=== PATIENT | female | born 1940 | race Caucasian/White ===

== ENCOUNTER 2016-10-27 05:21 | Day surgery (SDC) | payer MEDICARE, BC ==
[2016-10-27] MEDS ORDERED: Dextrose 5%-0.45% NaCl 1,000 ML IV SCH (06:00)
[2016-10-27] MEDS: Sodium Chloride 0.9% 10 ML Syringe FLUSH PRN ×2 (06:15→08:42)
[2016-10-27] MEDS ORDERED: Midazolam 1 MG/ML 2 ML SDV ONE ×2 (06:18→06:19)
[2016-10-27] MEDS ORDERED: fentaNYL 100 MCG/2 ML SDV ONE (06:18)
[2016-10-27] MEDS ORDERED: fentaNYL 100 MCG/2 ML SDV IV ONE ×3 (06:31→12:02)
[2016-10-27] MEDS ORDERED: Midazolam 1 MG/ML 2 ML SDV IV ONE ×5 (06:34→12:02)
--- NOTE | 2016-10-27 08:14 | OR ---
DATE: 10/27/2016 PROCEDURES: Total colonoscopy, NBI, cold snare polypectomy, and multiple pinch biopsies. INSTRUMENT USED: PCF-H180AL Olympus video colonoscope. PREMEDICATIONS: Fentanyl 100 mcg intravenous, Versed 2 mg intravenous. Nasal O2 cannula. The procedure was done under pulse oximetry, BP recording, and youth nutritional monitor. INDICATION: The patient with previous right hemicolectomy for adenocarcinoma. Recent PET scan suggestive of prominent folds at surgical site, malignancy under consideration. Colonoscopic examination is done for detection of any polypoid lesions and removal, rule out any recurrence of malignancy, endoscopic hemostasis therapy if needed. DESCRIPTION OF PROCEDURE: Initial rectal exam was unremarkable. Rigid anoscopy was normal. The colonoscope was passed with ease. Numerous scattered diverticula were noted in the distal left colon along with deformity. The scope was passed with ease up to the area of the surgical anastomosis, photographs were taken, some prominent benign-appearing folds were noted, NBI views were obtained, multiple pinch biopsies were obtained and sent for histopathology. There was some amount of fecal material, solid and liquid that needed aspiration. No bleeding was noted from any of the visualized areas at the commencement of the examination. No stricture. No vascular ectasia. No large isolated ulcerations seen. No evidence of diffuse inflammatory bowel disease in the form of friability, contact bleeding, or ulcerations. Photographs were taken of the area of the surgical site. Probing the proximal sides of folds and flexures, using adequate distention and clearing of the stool material, withdrawal of the scope was made. In the distal descending colon, around 8 mm sized benign-appearing pedunculated polyp was noted, NBI views were obtained, photographs were taken, cold snare polypectomy was done, the tissue was retrieved and sent for histopathology. No bleeding was noted from any of the visualized areas at the completion of examination. IMPRESSION: 1. Diverticulosis. 2. Descending colon polyp. The patient tolerated the procedure well. [facility] /[id number]
[2016-10-27 08:39] VITALS: BP 140/59
--- NOTE | 2016-10-27 09:38 | LETTER ---
10/27/2016 Sherry Kelley MD [facility] [address] [facility] [place] [address] RE: KARL HSIEH : [address] Kelley: Ms. Karl Hsieh had colonoscopic examination done this morning and she tolerated the procedure well. I herewith send a copy of the endoscopy note and photographs for your review. Thank you. Sincerely, [facility] /[id number]
== END 2016-10-27 09:00 | disposition home or self-care (01) ==
LOC: DL.ENDO 05:21
PROVIDERS: ATTEND Internal Medicine Gastroenterology
DX: D12.4 Benign neoplasm of descending colon (principal); K57.30 Diverticulosis of large intestine without perforation or abscess without bleeding; I48.91 Unspecified atrial fibrillation; E78.00 Pure hypercholesterolemia, unspecified; J44.9 Chronic obstructive pulmonary disease, unspecified; Z90.49 Acquired absence of other specified parts of digestive tract; Z85.038 Personal history of other malignant neoplasm of large intestine; Z87.891 Personal history of nicotine dependence; Z98.890 Other specified postprocedural states; Z79.01 Long term (current) use of anticoagulants; Z79.899 Other long term (current) drug therapy
CPT/HCPCS: 45380; 45385; J1642; J2250; J7042; J7050; 88305; J3010

== ENCOUNTER 2017-02-14 19:19 | Emergency (ER) | payer MEDICARE, BC ==
[2017-02-14 19:46] VITALS: BP 138/71
[2017-02-14] MEDS ORDERED: fentaNYL 100 MCG/2 ML SDV IVPUSH ONE ×2 (21:42→23:13)
[2017-02-14 21:44] LABS: CHLORIDE,CL 100 mmol/L (101-111); SODIUM,NA 136 mmol/L (135-145)
[2017-02-14] MEDS ORDERED: Iopamidol 612 MG/ML 75 ML Bottle IVPUSH ONE (21:59)
[2017-02-14] MEDS ORDERED: Polyethylene Glycol 3350 Powder 17 GM Packet ONE (23:31)
--- NOTE | 2017-02-14 23:32 | EDM.PDOC ---
ED HPI GENERAL MEDICAL PROBLEM - General Chief Complaint: Abdominal Pain Stated Complaint: STOMACH AND BACK PAINS, [id number] Time Seen by Provider: 02/14/17 20:03 Source of Information: Reports: Patient History Limitations: Reports: No Limitations - History of Present Illness INITIAL COMMENTS - FREE TEXT/NARRATIVE: C/o constipation for past 2 days with RLQ pain and discomfort to low back . hx colon resection in may with 13 chemo treatment. Last approximately 3 weeks ago. Notes area in Right abdomen a "hotspot and treatments stopped. Is being referred to [facility] later this month. Was seen in clinic last week for similar discomfort and told to take milk of magnesia with constipation. Took dose this am and no results. no nausea at present. appetite has been good. Occasional use of oxycodone at bedtime for discomfort. But only helps for approximately 45 minutes. Abdomen Pain Score (Numeric/FACES): 6 - Related Data Allergies Allergy/AdvReac Type Severity Reaction Status Date / Time hydrocodone Allergy Itching Verified 02/14/17 19:50 Home Meds: Home Meds atorvaSTATin [Lipitor] 10 mg PO BEDTIME 10/29/14 [History] Ibuprofen 200 mg PO ASDIRECTED PRN 05/19/16 [History] Lidocaine/Prilocaine [EMLA Crm] 1 applic TOP ASDIRECTED PRN 10/25/16 [History] Metoprolol Tartrate [Lopressor] 1 tab PO ASDIRECTED 10/25/16 [History] Ondansetron HCl [Ondansetron] 1 tab PO Q8H PRN 10/25/16 [History] Pantoprazole Sodium [Protonix] 1 tab PO DAILY 10/25/16 [History] Prochlorperazine [Compazine] 1 tab PO Q6H PRN 10/25/16 [History] Warfarin [Coumadin] 1 tab PO ASDIRECTED 10/25/16 [History] oxyCODONE 1 tab PO Q6H PRN 02/14/17 [History] Past Medical History HEENT History: Reports: Impaired Vision, Other (See Below) Other HEENT History: UPPER AND LOWER DENTURE PLATE Cardiovascular History: Reports: Afib, Blood Clots/VTE/DVT, High Cholesterol Respiratory History: Reports: COPD Gastrointestinal History: Reports: Colon Polyp, GERD, Other (See Below) Other Gastrointestinal History: S/P ABDOMINAL ABSCESS Genitourinary History: Reports: 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 LEUKOCYTOSIS. THROMBOCYTOSIS. HX OF HYPONATREMIA Immunologic History: Reports: None Oncologic (Cancer) History: Reports: Colon Dermatologic History: Reports: None - Infectious Disease History Infectious Disease History: Reports: Chicken Pox, Measles, Mumps, Pertussis ( Whooping Cough), Rubella, Other (See Below) Other Infectious Disease History: RICKETS - Past Surgical History Head Surgeries/Procedures: Reports: None HEENT Surgical History: Reports: Oral Surgery, Tonsillectomy Cardiovascular Surgical History: Reports: None Respiratory Surgical History: Reports: None GI Surgical History: Reports: Colonoscopy, Other (See Below) Other GI Surgeries/Procedures: RIGHT HEMICOLECTOMY FOR ADENOCARCINOMA Female Surgical History: Reports: Breast Biopsy Endocrine Surgical History: Reports: None Other Musculoskeletal Surgeries/Procedures:: had back surgery 4 to 5 years ago Oncologic Surgical History: Reports: Other (See Below) Other Oncologic Surgeries/Procedures: RIGHT HEMICOLECTOMY Dermatological Surgical History: Reports: None Social & Family History - Family History HEENT: Reports: None Cardiac: Reports: Cardiomyopathy Respiratory: Reports: None GI: Reports: None : Reports: None OBGYN: Reports: None Neurological: Reports: MS Psychiatric: Reports: None Endocrine/Metabolic: Reports: None Hematologic: Reports: None Immunologic: Reports: None Dermatologic: Reports: None Oncologic: Reports: Breast - Tobacco Use Smoking Status *Q: Former Smoker Years of Tobacco use: 40 Packs/Tins Daily: 0.5 Used Tobacco, but Quit: No Second Hand Smoke Exposure: Yes - Caffeine Use Caffeine Use: Reports: Coffee Other Caffeine Use: COFFEE, AVERAGE OF 5 CUPS DAILY - Recreational Drug Use Recreational Drug Use: No Drug Use in Last 12 Months: No ED ROS GENERAL - Review of Systems Review Of Systems: See Below Constitutional: Reports: Fatigue HEENT: Reports: No Symptoms Respiratory: Reports: No Symptoms Cardiovascular: Reports: No Symptoms GI/Abdominal: Reports: Abdominal Pain, Constipation : Reports: No Symptoms Skin: Reports: No Symptoms Neurological: Reports: No Symptoms ED EXAM, GI/ABD - Physical Exam Exam: See Below Exam Limited By: No Limitations General Appearance: Alert, Mild Distress Eyes: Bilateral: EOMI Ears: Normal External Exam Nose: Normal Inspection Throat/Mouth: Normal Inspection Head: Atraumatic, Normocephalic Neck: Normal Inspection, Full Range of Motion Respiratory/Chest: No Respiratory Distress, Lungs Clear, Normal Breath Sounds Cardiovascular: Normal Peripheral Pulses, Regular Rate, Rhythm GI/Abdominal Exam: Tender (RLQ), Abnormal Bowel Sounds (hyperactive). No: Distended, Guarding Back Exam: Other (sacral tenderness with deeppalpation ) Extremities: Normal Inspection Neurological: Alert, Oriented, Normal Cognition, Normal Gait Psychiatric: Normal Affect, Normal Mood Skin Exam: Warm, Dry, Intact, Normal Color Course - Vital Signs Last Recorded V/S: Last Vital Signs Temp 97.8 F 02/14/17 19:43 Pulse 62 02/14/17 19:43 Resp 20 02/14/17 19:43 BP 138/71 02/14/17 19:43 Pulse Ox 98 02/14/17 19:43 - Orders/Labs/Meds Labs: Laboratory Tests 02/14/17 02/14/17 02/14/17 Range/Units 21:16 21:16 21:16 WBC 4.6 L (5.0-10.0) 10^3/uL RBC 3.92 L (4.2-5.4) 10^6/uL Hgb 12.1 (12.0-16.0) g/dL Hct 38.4 (37.0-47.0) % MCV 98.0 (80-100) fL MCH 30.9 (27.0-34.0) pg MCHC 31.5 L (33.0-35.0) g/dL Plt Count 177 (150-450) 10^3/uL Neut % (Auto) 37.3 L (42.2-75.2) % Lymph % (Auto) 38.2 (20.5-50.1) % [place] % (Auto) 22.5 H (2-8) % Eos % (Auto) 1.3 (1.0-3.0) % Baso % (Auto) 0.7 (0.0-1.0) % Add Manual Diff Yes Neutrophils % (Manual) 43 (42-75) % Band Neutrophils % 1 % Lymphocytes % (Manual) 33 (20-50) % Monocytes % (Manual) 21 H (2-8) % Basophils % (Manual) 1 Myelocytes % 1 Toxic Granulation 1+ slight Platelet Estimate Adequate Giant Platelets Few Target Cells Few PT 26.3 H (9.0-12.0) SEC INR 2.6 H (0.9-1.2) Sodium 136 (135-145) mmol/L Potassium 3.9 (3.6-5.0) mmol/L Chloride 100 L (101-111) mmol/L Carbon Dioxide 25.0 (21.0-31.0) mmol/L Anion Gap 14.9 BUN 9 (7-18) mg/dL Creatinine 0.8 (0.6-1.3) mg/dL Est Cr Clr Drug Dosing 45.12 mL/min Estimated GFR (MDRD) > 60 BUN/Creatinine Ratio 11.25 Glucose 101 (74-105) mg/dL Calcium 9.5 (8.4-10.2) mg/dl Total Bilirubin 0.6 (0.2-1.0) mg/dL AST 27 (10-42) IU/L ALT 21 (10-60) IU/L Alkaline Phosphatase 63 (42-121) IU/L Total Protein 6.6 L (6.7-8.2) g/dl Albumin 4.1 (3.2-5.5) g/dl Globulin 2.5 Albumin/Globulin Ratio 1.64 Amylase 89 (28-100) U/L Lipase 28 (22-51) U/L Meds: Medications Discontinued Medications Generic Name Dose Route Start Last Admin Trade Name Patrice PRN Reason Stop Dose Admin Fentanyl 25 mcg 02/14/17 21:42 02/14/17 21:57 Sublimaze IVPUSH 02/14/17 21:43 25 mcg ONETIME ONE Administration Fentanyl 25 mcg 02/14/17 23:13 02/14/17 23:17 Sublimaze IVPUSH 02/14/17 23:14 25 mcg ONETIME ONE Administration Iopamidol 75 ml 02/14/17 21:59 02/14/17 22:31 Isovue-300 (61%) IVPUSH 02/14/17 22:00 75 ml ONETIME ONE Administration Polyethylene Glycol Confirm 02/14/17 23:31 02/14/17 23:39 Miralax Administered 02/14/17 23:32 17 gm Dose Administration 17 gm .ROUTE .[employer] ONE - Radiology Interpretation Free Text/Narrative:: CT abdomen with contrast. Lobulated, heterogeneous mass in RLQ adjacent to the cecum, worrisome for tumor recurrence near the postoperative site., Retroperitoneal mass seen in the flank posterior to the left kidney and second tiny enhancing nodularity seen within the left posterior paraspinous musculature worrisome for metastatic lesions. - Re-Assessments/Exams Free Text/Narrative Re-Assessment/Exam: CT results briefly reviewed with patient and family, recommendation to utilize Miralax on regular basis, Routine use of pain medication. Follow up with PCP this week and determine if possible to move up appointment in [place] or adjust pain medications based on CT findinsgs. Departure - Departure Time of Disposition: 23:28 Disposition: Home, Self-Care 01 Condition: Fair Clinical Impression: History of colon cancer Abdominal pain Qualifiers: Abdominal location: right lower quadrant Qualified Code(s): R10.31 - Right lower quadrant pain - Discharge Information Instructions: Constipation, Adult, [id number], Pain Medicine Instructions, [id number] Forms: ED Department Discharge Additional Instructions: milalax 17gm ( one capful daily) in 8 ounces of liquid Oxycodone 5mg 1-2 every 4 hours as needed for pain Follow up with PCP this week Urgent follow up if increasing pain , vomiting or fever light diet 24 hours
== END 2017-02-14 23:43 | disposition home or self-care (01) ==
LOC: DL.ED 19:19
DX: R10.31 Right lower quadrant pain (principal); E78.00 Pure hypercholesterolemia, unspecified; J44.9 Chronic obstructive pulmonary disease, unspecified; K21.9 Gastro-esophageal reflux disease without esophagitis; Z86.2 Personal history of diseases of the blood and blood-forming organs and certain disorders involving the immune mechanism; Z85.038 Personal history of other malignant neoplasm of large intestine; Z98.890 Other specified postprocedural states; Z87.891 Personal history of nicotine dependence; Z79.01 Long term (current) use of anticoagulants; Z79.899 Other long term (current) drug therapy; Z88.5 Allergy status to narcotic agent
CPT/HCPCS: 36415; 74177; 80053; 82150; 83690; 85025; 85610; 96374; 96376; 99284; A9270; J3010; Q9967

== ENCOUNTER 2017-02-17 13:40 | Emergency (ER) | payer MEDICARE, BC ==
[2017-02-17] MEDS ORDERED: Sodium Chloride 0.9% 1,000 ML IV SCH (14:15)
--- NOTE | 2017-02-17 14:21 | EDM.PDOC ---
ED HPI GENERAL MEDICAL PROBLEM - General Chief Complaint: Neuro Symptoms/Deficits Stated Complaint: DIZZY AND FALLING DOWN, [id number] Time Seen by Provider: 02/17/17 14:13 Source of Information: Reports: Patient, Family History Limitations: Reports: No Limitations - History of Present Illness INITIAL COMMENTS - FREE TEXT/NARRATIVE: 76 yo white female w/ PMHx. Colon Cancer and s/p 13 rounds of chemo. Also newly low abdomen mass noted and will have evaluation at [facility]. Pt. admits to poor appetite and poor fluid intake. Today patient became very weak on standing and dropped to her knees w/o LOC and no head injury Onset: Today Onset Date: 02/17/17 Onset Time: 09:00 Duration: Hour(s): Location: Reports: Generalized Severity: Moderate Improves with: Reports: None Worsens with: Reports: None Context: Reports: Other (PMHx. Colon Cancer and s/p 18 rounds of chemo w/ poor oral intake) Associated Symptoms: Reports: Malaise, Weakness - Related Data Allergies Allergy/AdvReac Type Severity Reaction Status Date / Time acetaminophen [From Tylenol] Allergy Stomach Verified 02/17/17 14:05 Upset hydrocodone Allergy Itching Verified 02/14/17 19:50 Home Meds: Home Meds atorvaSTATin [Lipitor] 10 mg PO BEDTIME 10/29/14 [History] Ibuprofen 200 mg PO ASDIRECTED PRN 05/19/16 [History] Lidocaine/Prilocaine [EMLA Crm] 1 applic TOP ASDIRECTED PRN 10/25/16 [History] Metoprolol Tartrate [Lopressor] 1 tab PO BID 10/25/16 [History] Ondansetron HCl [Ondansetron] 1 tab PO Q8H PRN 10/25/16 [History] Pantoprazole Sodium [Protonix] 1 tab PO DAILY 10/25/16 [History] Prochlorperazine [Compazine] 1 tab PO Q6H PRN 10/25/16 [History] Warfarin [Coumadin] 0.5 tab PO ASDIRECTED 10/25/16 [History] oxyCODONE 1 tab PO Q6H PRN 02/14/17 [History] Past Medical History HEENT History: Reports: Impaired Vision, Other (See Below) Other HEENT History: UPPER AND LOWER DENTURE PLATE Cardiovascular History: Reports: Afib, Blood Clots/VTE/DVT, High Cholesterol Respiratory History: Reports: COPD Gastrointestinal History: Reports: Colon Polyp, GERD, Other (See Below) Other Gastrointestinal History: S/P ABDOMINAL ABSCESS 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 LEUKOCYTOSIS. THROMBOCYTOSIS. HX OF HYPONATREMIA Immunologic History: Reports: None Oncologic (Cancer) History: Reports: Colon Dermatologic History: Reports: None - Infectious Disease History Infectious Disease History: Reports: Chicken Pox, Measles, Mumps, Pertussis ( Whooping Cough), Rubella, Other (See Below) Other Infectious Disease History: RICKETS - Past Surgical History Head Surgeries/Procedures: Reports: None HEENT Surgical History: Reports: Oral Surgery, Tonsillectomy Cardiovascular Surgical History: Reports: None Respiratory Surgical History: Reports: None GI Surgical History: Reports: Colonoscopy, Other (See Below) Other GI Surgeries/Procedures: RIGHT HEMICOLECTOMY FOR ADENOCARCINOMA Female Surgical History: Reports: Breast Biopsy Endocrine Surgical History: Reports: None Other Musculoskeletal Surgeries/Procedures:: had back surgery 4 to 5 years ago Oncologic Surgical History: Reports: Other (See Below) Other Oncologic Surgeries/Procedures: RIGHT HEMICOLECTOMY Dermatological Surgical History: Reports: None Social & Family History - Family History HEENT: Reports: None Cardiac: Reports: Cardiomyopathy Respiratory: Reports: None GI: Reports: None : Reports: None OBGYN: Reports: None Neurological: Reports: MS Psychiatric: Reports: None Endocrine/Metabolic: Reports: None Hematologic: Reports: None Immunologic: Reports: None Dermatologic: Reports: None Oncologic: Reports: Breast - Tobacco Use Smoking Status *Q: Former Smoker Years of Tobacco use: 40 Packs/Tins Daily: 0.5 Used Tobacco, but Quit: No Second Hand Smoke Exposure: Yes - Caffeine Use Caffeine Use: Reports: Coffee Other Caffeine Use: COFFEE, AVERAGE OF 5 CUPS DAILY - Recreational Drug Use Recreational Drug Use: No Drug Use in Last 12 Months: No ED ROS GENERAL - Review of Systems Review Of Systems: See Below Constitutional: Reports: Malaise, Weakness, Fatigue, Decreased Appetite, Weight Loss HEENT: Reports: No Symptoms Respiratory: Reports: No Symptoms Cardiovascular: Reports: No Symptoms Endocrine: Reports: No Symptoms GI/Abdominal: Reports: Constipation (due to intake of Oxycontin), Decreased Appetite : Reports: No Symptoms Musculoskeletal: Reports: No Symptoms Skin: Reports: No Symptoms Neurological: Reports: No Symptoms Psychiatric: Reports: No Symptoms Hematologic/Lymphatic: Reports: No Symptoms Immunologic: Reports: No Symptoms ED EXAM, GENERAL - Physical Exam Exam: See Below Exam Limited By: No Limitations General Appearance: Alert, No Apparent Distress, Cachetic Eye Exam: Bilateral Eye: EOMI, PERRL Ears: Normal External Exam Nose: Normal Inspection Throat/Mouth: Normal Inspection Head: Atraumatic Neck: Normal Inspection Respiratory/Chest: No Respiratory Distress, Lungs Clear Cardiovascular: Normal Peripheral Pulses, Regular Rate, Rhythm GI/Abdominal: Soft, Mass (right low abdomen) Back Exam: Normal Inspection Extremities: Normal Inspection, Normal Range of Motion Neurological: Alert, Oriented, CN II-XII Intact Psychiatric: Normal Affect, Normal Mood Skin Exam: Warm, Dry, Intact Lymphatic: No Adenopathy Course - Vital Signs Last Recorded V/S: Last Vital Signs Temp 37.1 C 02/17/17 13:55 Pulse 94 02/17/17 13:55 Resp 16 02/17/17 13:55 BP 120/67 02/17/17 13:55 Pulse Ox 99 02/17/17 13:55 - Orders/Labs/Meds Orders: Active Orders 24 hr Category Date Time Status Sodium Chloride 0.9% [Normal Saline] 1,000 ml Med 02/17/17 14:15 Active IV ASDIRECTED Medication Orders Sodium Chloride (Normal Saline) 1,000 mls @ 125 mls/hr IV ASDIRECTED MEI Last Admin: 02/17/17 14:35 Dose: 125 mls/hr Labs: Laboratory Tests 02/17/17 02/17/17 02/17/17 Range/Units 14:31 14:31 14:31 WBC 5.5 (5.0-10.0) 10^3/uL RBC 4.17 L (4.2-5.4) 10^6/uL Hgb 12.8 (12.0-16.0) g/dL Hct 40.4 (37.0-47.0) % MCV 96.9 (80-100) fL MCH 30.7 (27.0-34.0) pg MCHC 31.7 L (33.0-35.0) g/dL Plt Count 208 (150-450) 10^3/uL Neut % (Auto) 41.6 L (42.2-75.2) % Lymph % (Auto) 33.8 (20.5-50.1) % [place] % (Auto) 23.0 H (2-8) % Eos % (Auto) 0.7 L (1.0-3.0) % Baso % (Auto) 0.9 (0.0-1.0) % PT 46.6 H D (9.0-12.0) SEC INR 4.6 H (0.9-1.2) APTT 73.2 H (22.0-34.0) SEC Sodium 136 (135-145) mmol/L Potassium 3.5 L (3.6-5.0) mmol/L Chloride 101 (101-111) mmol/L Carbon Dioxide 26.0 (21.0-31.0) mmol/L Anion Gap 12.5 BUN 10 (7-18) mg/dL Creatinine 0.9 (0.6-1.3) mg/dL Est Cr Clr Drug Dosing TNP Estimated GFR (MDRD) > 60 BUN/Creatinine Ratio 11.11 Glucose 124 H (74-105) mg/dL Calcium 9.1 (8.4-10.2) mg/dl Total Bilirubin 0.6 (0.2-1.0) mg/dL AST 26 (10-42) IU/L ALT 18 (10-60) IU/L Alkaline Phosphatase 58 (42-121) IU/L Total Protein 6.0 L (6.7-8.2) g/dl Albumin 3.6 (3.2-5.5) g/dl Globulin 2.4 Albumin/Globulin Ratio 1.50 Amylase 73 (28-100) U/L Lipase 28 (22-51) U/L Urine Color (YELLOW) Urine Appearance (CLEAR) Urine pH (5.0-9.0) Ur Specific [place] (1.005-1.030) Urine Protein (NEGATIVE) Urine Glucose (UA) (NEGATIVE) Urine Ketones (NEGATIVE) Urine Occult Blood (NEGATIVE) Urine Nitrite (NEGATIVE) Urine Bilirubin (NEGATIVE) Urine Urobilinogen (0.2-1.0) mg/dL Ur Leukocyte Esterase (NEGATIVE) 02/17/17 Range/Units 14:45 WBC (5.0-10.0) 10^3/uL RBC (4.2-5.4) 10^6/uL Hgb (12.0-16.0) g/dL Hct (37.0-47.0) % MCV (80-100) fL MCH (27.0-34.0) pg MCHC (33.0-35.0) g/dL Plt Count (150-450) 10^3/uL Neut % (Auto) (42.2-75.2) % Lymph % (Auto) (20.5-50.1) % [place] % (Auto) (2-8) % Eos % (Auto) (1.0-3.0) % Baso % (Auto) (0.0-1.0) % PT (9.0-12.0) SEC INR (0.9-1.2) APTT (22.0-34.0) SEC Sodium (135-145) mmol/L Potassium (3.6-5.0) mmol/L Chloride (101-111) mmol/L Carbon Dioxide (21.0-31.0) mmol/L Anion Gap BUN (7-18) mg/dL Creatinine (0.6-1.3) mg/dL Est Cr Clr Drug Dosing Estimated GFR (MDRD) BUN/Creatinine Ratio Glucose (74-105) mg/dL Calcium (8.4-10.2) mg/dl Total Bilirubin (0.2-1.0) mg/dL AST (10-42) IU/L ALT (10-60) IU/L Alkaline Phosphatase (42-121) IU/L Total Protein (6.7-8.2) g/dl Albumin (3.2-5.5) g/dl Globulin Albumin/Globulin Ratio Amylase (28-100) U/L Lipase (22-51) U/L Urine Color Yellow (YELLOW) Urine Appearance Clear (CLEAR) Urine pH 7.0 (5.0-9.0) Ur Specific [place] 1.015 (1.005-1.030) Urine Protein Trace H (NEGATIVE) Urine Glucose (UA) Negative (NEGATIVE) Urine Ketones Negative (NEGATIVE) Urine Occult Blood Trace-intact H (NEGATIVE) Urine Nitrite Negative (NEGATIVE) Urine Bilirubin Negative (NEGATIVE) Urine Urobilinogen 0.2 (0.2-1.0) mg/dL Ur Leukocyte Esterase Negative (NEGATIVE) Meds: Medications Generic Name Dose Route Start Last Admin Trade Name Patrice PRN Reason Stop Dose Admin Sodium Chloride 1,000 mls @ 125 mls/hr 02/17/17 14:15 02/17/17 14:35 Normal Saline IV 125 mls/hr ASDIRECTED MEI Administration Departure - Departure Time of Disposition: 16:03 Disposition: Home, Self-Care 01 Condition: Fair Clinical Impression: Weakness generalized, Coagulopathy - Discharge Information Forms: ED Department Discharge Additional Instructions: Your case was discussed with Madalyn Johnson Please increase intake of Fluids ( Water and Juice) Try Nutritional Supplements ( BOOST or ENSURE PLUS) take 3 cans each day Madalyn Johnson request you get a repeat blood draw on Tuesday morning F/U w/ [facility] - My Orders Last 24 Hours: My Active Orders 02/17/17 14:15 Sodium Chloride 0.9% [Normal Saline] 1,000 ml IV ASDIRECTED - Assessment/Plan Last 24 Hours: My Active Orders 02/17/17 14:15 Sodium Chloride 0.9% [Normal Saline] 1,000 ml IV ASDIRECTED
[2017-02-17 14:58] LABS: CHLORIDE,CL 101 mmol/L (101-111); SODIUM,NA 136 mmol/L (135-145)
[2017-02-17 16:23] VITALS: BP 108/67
== END 2017-02-17 16:38 | disposition home or self-care (01) ==
LOC: DL.ED 13:40
DX: R53.1 Weakness (principal); D68.9 Coagulation defect, unspecified; J44.9 Chronic obstructive pulmonary disease, unspecified; C18.9 Malignant neoplasm of colon, unspecified; Z88.6 Allergy status to analgesic agent; Z88.5 Allergy status to narcotic agent; Z79.899 Other long term (current) drug therapy; Z79.01 Long term (current) use of anticoagulants; Z87.891 Personal history of nicotine dependence
CPT/HCPCS: 36415; 80053; 81003; 82150; 83690; 85025; 85610; 85730; 96361; 96374; 99285; J1642; J7030; 99284

== ENCOUNTER 2017-03-01 13:03 | Emergency (ER) | payer MEDICARE, BC ==
[2017-03-01 13:23] VITALS: BP 154/61
--- NOTE | 2017-03-01 14:30 | EDM.PDOC ---
ED HPI GENERAL MEDICAL PROBLEM - General Chief Complaint: General Stated Complaint: WEAK Time Seen by Provider: 03/01/17 14:26 Source of Information: Reports: Patient, RN, RN Notes Reviewed History Limitations: Reports: No Limitations - History of Present Illness INITIAL COMMENTS - FREE TEXT/NARRATIVE: Pt presents to the ER with c/o feeling weak. She states she is on chemo and had her last treatment about 1 month ago. She states she has been feeling run down and weak the past few days. Pt denies cough, sore throat, chest pain, sob, fever , chills, N/V/D. Patient denies pain at this time. Onset: Gradual - Related Data Allergies Allergy/AdvReac Type Severity Reaction Status Date / Time acetaminophen [From Tylenol] Allergy Stomach Verified 02/17/17 14:05 Upset hydrocodone Allergy Itching Verified 02/14/17 19:50 Home Meds: Home Meds atorvaSTATin [Lipitor] 10 mg PO BEDTIME 10/29/14 [History] Ibuprofen 200 mg PO ASDIRECTED PRN 05/19/16 [History] Lidocaine/Prilocaine [EMLA Crm] 1 applic TOP ASDIRECTED PRN 10/25/16 [History] Metoprolol Tartrate [Lopressor] 1 tab PO BID 10/25/16 [History] Ondansetron HCl [Ondansetron] 1 tab PO Q8H PRN 10/25/16 [History] Pantoprazole Sodium [Protonix] 1 tab PO DAILY 10/25/16 [History] Prochlorperazine [Compazine] 1 tab PO Q6H PRN 10/25/16 [History] Warfarin [Coumadin] 0.5 tab PO ASDIRECTED 10/25/16 [History] oxyCODONE 1 tab PO Q6H PRN 02/14/17 [History] Past Medical History HEENT History: Reports: Impaired Vision, Other (See Below) Other HEENT History: UPPER AND LOWER DENTURE PLATE Cardiovascular History: Reports: Afib, Blood Clots/VTE/DVT, High Cholesterol Respiratory History: Reports: COPD Gastrointestinal History: Reports: Colon Polyp, GERD, Other (See Below) Other Gastrointestinal History: S/P ABDOMINAL ABSCESS Genitourinary History: Reports: None 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 LEUKOCYTOSIS. THROMBOCYTOSIS. HX OF HYPONATREMIA Immunologic History: Reports: None Oncologic (Cancer) History: Reports: Colon Dermatologic History: Reports: None - Infectious Disease History Infectious Disease History: Reports: Chicken Pox, Measles, Mumps, Pertussis ( Whooping Cough), Rubella, Other (See Below) Other Infectious Disease History: RICKETS - Past Surgical History Head Surgeries/Procedures: Reports: None HEENT Surgical History: Reports: Oral Surgery, Tonsillectomy Cardiovascular Surgical History: Reports: None Respiratory Surgical History: Reports: None GI Surgical History: Reports: Colonoscopy, Other (See Below) Other GI Surgeries/Procedures: RIGHT HEMICOLECTOMY FOR ADENOCARCINOMA Female Surgical History: Reports: Breast Biopsy Endocrine Surgical History: Reports: None Other Musculoskeletal Surgeries/Procedures:: had back surgery 4 to 5 years ago Oncologic Surgical History: Reports: Other (See Below) Other Oncologic Surgeries/Procedures: RIGHT HEMICOLECTOMY Dermatological Surgical History: Reports: None Social & Family History - Family History HEENT: Reports: None Cardiac: Reports: Cardiomyopathy Respiratory: Reports: None GI: Reports: None : Reports: None OBGYN: Reports: None Neurological: Reports: MS Psychiatric: Reports: None Endocrine/Metabolic: Reports: None Hematologic: Reports: None Immunologic: Reports: None Dermatologic: Reports: None Oncologic: Reports: Breast - Tobacco Use Smoking Status *Q: Current Every Day Smoker Years of Tobacco use: 50 Packs/Tins Daily: 1 Used Tobacco, but Quit: Yes Month Tobacco Last Used: 2016 Second Hand Smoke Exposure: Yes - Caffeine Use Caffeine Use: Reports: Coffee Other Caffeine Use: COFFEE, AVERAGE OF 5 CUPS DAILY - Recreational Drug Use Recreational Drug Use: No Drug Use in Last 12 Months: No ED ROS GENERAL - Review of Systems Review Of Systems: ROS reveals no pertinent complaints other than HPI. ED EXAM, GENERAL - Physical Exam Exam: See Below Exam Limited By: No Limitations General Appearance: Alert, WD/WN, No Apparent Distress Eye Exam: Bilateral Eye: Normal Inspection, PERRL Ears: Normal External Exam, Hearing Grossly Normal Nose: Normal Inspection Throat/Mouth: Normal Inspection, Normal Lips, Normal Teeth, Normal Gums, Normal Oropharynx, Normal Voice, No Airway Compromise Head: Atraumatic, Normocephalic Neck: Normal Inspection, Supple, Non-Tender, Full Range of Motion Respiratory/Chest: No Respiratory Distress, Lungs Clear, Normal Breath Sounds, No Accessory Muscle Use, Chest Non-Tender Cardiovascular: Normal Peripheral Pulses, Regular Rate, Rhythm, No Edema, No Gallop, No JVD, No Murmur, No Rub Peripheral Pulses: 2+: Radial (L), Radial (R) GI/Abdominal: Normal Bowel Sounds, Soft, Non-Tender, No Organomegaly, No Distention, No Abnormal Bruit, No Mass (Female) Exam: Deferred Rectal (Female) Exam: Deferred Back Exam: Normal Inspection, Full Range of Motion Extremities: Normal Inspection, Normal Range of Motion, Non-Tender, No Pedal Edema, Normal Capillary Refill Neurological: Alert, Oriented, Normal Cognition, Normal Gait, No Motor/Sensory Deficits Psychiatric: Normal Affect, Normal Mood Skin Exam: Warm, Dry, Intact, Normal Color, No Rash Lymphatic: No Adenopathy EKG INTERPRETATION EKG Date: 03/01/17 Time: 13:43 Rhythm: NSR Rate (Beats/Min): 58 Ferguson: Normal P-Wave: Present QRS: Normal ST-T: Normal QT: Normal Comparison: NA - No Prior EKG Course - Vital Signs Last Recorded V/S: Last Vital Signs Temp 97.1 F 03/01/17 13:22 Pulse 62 03/01/17 13:22 Resp 16 03/01/17 13:22 BP 154/61 H 03/01/17 13:22 Pulse Ox 97 03/01/17 13:22 - Orders/Labs/Meds Orders: Active Orders 24 hr Category Date Time Status EKG Documentation Completion [RC] URGENT Care 03/01/17 13:49 Active Labs: Laboratory Tests 03/01/17 03/01/17 03/01/17 Range/Units 14:08 14:18 14:18 WBC 8.5 (5.0-10.0) 10^3/uL RBC 3.94 L (4.2-5.4) 10^6/uL Hgb 12.3 (12.0-16.0) g/dL Hct 39.2 (37.0-47.0) % MCV 99.5 (80-100) fL MCH 31.2 (27.0-34.0) pg MCHC 31.4 L (33.0-35.0) g/dL Plt Count 162 (150-450) 10^3/uL Neut % (Auto) 65.9 (42.2-75.2) % Lymph % (Auto) 22.3 (20.5-50.1) % [place] % (Auto) 10.3 H (2-8) % Eos % (Auto) 0.9 L (1.0-3.0) % Baso % (Auto) 0.6 (0.0-1.0) % Sodium 138 (135-145) mmol/L Potassium 4.1 (3.6-5.0) mmol/L Chloride 105 (101-111) mmol/L Carbon Dioxide 24.0 (21.0-31.0) mmol/L Anion Gap 13.1 BUN 9 (7-18) mg/dL Creatinine 0.9 (0.6-1.3) mg/dL Est Cr Clr Drug Dosing 50.90 mL/min Estimated GFR (MDRD) > 60 BUN/Creatinine Ratio 10.00 Glucose 88 (74-105) mg/dL Calcium 9.4 (8.4-10.2) mg/dl Total Bilirubin 0.8 (0.2-1.0) mg/dL AST 28 (10-42) IU/L ALT 19 (10-60) IU/L Alkaline Phosphatase 63 (42-121) IU/L Troponin I < 0.02 (0.00-0.02) ng/ml Total Protein 6.6 L (6.7-8.2) g/dl Albumin 4.0 (3.2-5.5) g/dl Globulin 2.6 Albumin/Globulin Ratio 1.54 Urine Color Yellow (YELLOW) Urine Appearance Clear (CLEAR) Urine pH 7.0 (5.0-9.0) Ur Specific [place] 1.010 (1.005-1.030) Urine Protein Negative (NEGATIVE) Urine Glucose (UA) Negative (NEGATIVE) Urine Ketones Negative (NEGATIVE) Urine Occult Blood Negative (NEGATIVE) Urine Nitrite Negative (NEGATIVE) Urine Bilirubin Negative (NEGATIVE) Urine Urobilinogen 0.2 (0.2-1.0) mg/dL Ur Leukocyte Esterase Negative (NEGATIVE) Urine RBC 0-5 /HPF Urine WBC 0-5 (0-5/HPF) /HPF Ur Epithelial Cells Rare /HPF Urine Bacteria Rare (0-FEW/HPF) /HPF - Radiology Interpretation Free Text/Narrative:: chest xray:No acute findings See rad report Departure - Departure Time of Disposition: 15:10 Disposition: Home, Self-Care 01 Condition: Fair Clinical Impression: Weakness - Discharge Information Instructions: Weakness, [id number] Forms: ED Department Discharge Additional Instructions: Drink plenty of fluids. Follow up with your primary care facility. Rest.
[2017-03-01 14:47] LABS: CHLORIDE,CL 105 mmol/L (101-111); SODIUM,NA 138 mmol/L (135-145)
--- NOTE | 2017-03-08 09:55 | EKG ---
03/01/2017 - KARL RAMIREZ - This 12-lead EKG shows a sinus bradycardia with a ventricular rate of 58. Normal axis and intervals. Nonspecific T-wave changes in the anterior lateral leads. No acute ST-T wave changes. [facility] /[id number]
== END 2017-03-01 15:26 | disposition home or self-care (01) ==
LOC: DL.ED 13:03
DX: R53.1 Weakness (principal); F17.210 Nicotine dependence, cigarettes, uncomplicated; Z88.5 Allergy status to narcotic agent; Z79.899 Other long term (current) drug therapy; Z79.01 Long term (current) use of anticoagulants
CPT/HCPCS: 36415; 71020; 80053; 81001; 84484; 85025; 93005; 93010; 99284; 99285

== ENCOUNTER 2018-09-28 23:16 | Emergency (ER) | payer MEDICARE, BC ==
[2018-09-28 23:30] VITALS: BP 143/83; PULSE 75
[2018-09-28] MEDS ORDERED: Nitrofurantoin Monohydrate/Macrocrystalline 100 MG Cap PO ONE (23:48)
--- NOTE | 2018-09-28 23:52 | EDM.PDOC ---
ED HPI GENERAL MEDICAL PROBLEM - General Chief Complaint: Genitourinary Problem Stated Complaint: UTI? Time Seen by Provider: 09/28/18 23:49 Source of Information: Reports: Patient History Limitations: Reports: No Limitations - History of Present Illness INITIAL COMMENTS - FREE TEXT/NARRATIVE: feels like she is having UTI with urgency frequency. no dysuria. - Related Data Allergies Allergy/AdvReac Type Severity Reaction Status Date / Time acetaminophen [From Tylenol] Allergy Stomach Verified 09/28/18 23:30 Upset hydrocodone Allergy Itching Verified 09/28/18 23:30 Home Meds: Home Meds atorvaSTATin [Lipitor] 10 mg PO BEDTIME 10/29/14 [History] Ibuprofen 200 mg PO ASDIRECTED PRN 05/19/16 [History] Lidocaine/Prilocaine [EMLA Crm] 1 applic TOP ASDIRECTED PRN 10/25/16 [History] Metoprolol Tartrate [Lopressor] 1 tab PO BID 10/25/16 [History] Ondansetron HCl [Ondansetron] 1 tab PO Q8H PRN 10/25/16 [History] Pantoprazole Sodium [Protonix] 1 tab PO DAILY 10/25/16 [History] Prochlorperazine [Compazine] 1 tab PO Q6H PRN 10/25/16 [History] Warfarin [Coumadin] 0.5 tab PO ASDIRECTED 10/25/16 [History] oxyCODONE 1 tab PO Q6H PRN 02/14/17 [History] Past Medical History HEENT History: Reports: Impaired Vision, Other (See Below) Other HEENT History: UPPER AND LOWER DENTURE PLATE Cardiovascular History: Reports: Afib, Blood Clots/VTE/DVT, High Cholesterol Respiratory History: Reports: COPD Gastrointestinal History: Reports: Colon Polyp, GERD, Other (See Below) Other Gastrointestinal History: S/P ABDOMINAL ABSCESS Genitourinary History: Reports: None 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 LEUKOCYTOSIS. THROMBOCYTOSIS. HX OF HYPONATREMIA Immunologic History: Reports: None Oncologic (Cancer) History: Reports: Colon Dermatologic History: Reports: None - Infectious Disease History Infectious Disease History: Reports: Chicken Pox, Measles, Mumps, Pertussis ( Whooping Cough), Rubella, Other (See Below) Other Infectious Disease History: RICKETS - Past Surgical History Head Surgeries/Procedures: Reports: None HEENT Surgical History: Reports: Oral Surgery, Tonsillectomy Cardiovascular Surgical History: Reports: None Respiratory Surgical History: Reports: None GI Surgical History: Reports: Colonoscopy, Other (See Below) Other GI Surgeries/Procedures: RIGHT HEMICOLECTOMY FOR ADENOCARCINOMA Female Surgical History: Reports: Breast Biopsy Endocrine Surgical History: Reports: None Other Musculoskeletal Surgeries/Procedures:: had back surgery 4 to 5 years ago Oncologic Surgical History: Reports: Other (See Below) Other Oncologic Surgeries/Procedures: RIGHT HEMICOLECTOMY Dermatological Surgical History: Reports: None Social & Family History - Family History HEENT: Reports: None Cardiac: Reports: Cardiomyopathy Respiratory: Reports: None GI: Reports: None : Reports: None OBGYN: Reports: None Neurological: Reports: MS Psychiatric: Reports: None Endocrine/Metabolic: Reports: None Hematologic: Reports: None Immunologic: Reports: None Dermatologic: Reports: None Oncologic: Reports: Breast - Tobacco Use Smoking Status *Q: Former Smoker Used Tobacco, but Quit: No - Caffeine Use Caffeine Use: Reports: Coffee Other Caffeine Use: COFFEE, AVERAGE OF 5 CUPS DAILY ED ROS GENERAL - Review of Systems Review Of Systems: ROS reveals no pertinent complaints other than HPI. ED EXAM, RENAL/ - Physical Exam Exam: See Below Exam Limited By: No Limitations General Appearance: Alert, WD/WN, Mild Distress, Other (discomfort) Ears: Hearing Grossly Normal Throat/Mouth: Normal Voice, No Airway Compromise Head: Atraumatic Neck: Non-Tender, Full Range of Motion Respiratory/Chest: No Respiratory Distress Cardiovascular: Regular Rate, Rhythm GI/Abdominal: Soft, Tender, Other (suprapubic). No: Distended, Guarding, Rigid , Rebound Neurological: Alert, Oriented, Normal Cognition, Normal Gait, No Motor/Sensory Deficits Psychiatric: Normal Affect, Normal Mood Skin Exam: Warm, Dry, Normal Color Lymphatic: No Adenopathy Course - Vital Signs Last Recorded V/S: Last Vital Signs Temp 36.3 C 09/28/18 23:25 Pulse 75 09/28/18 23:25 Resp 17 09/28/18 23:25 BP 143/83 H 09/28/18 23:25 Pulse Ox 98 09/28/18 23:25 - Orders/Labs/Meds Orders: Active Orders 24 hr Category Date Time Status CULTURE URINE [RM] Routine Lab 09/28/18 23:25 Received UA W/MICROSCOPIC [URIN] Routine Lab 09/28/18 23:25 Results Nitrofurantoin [place]/Macrocryst [Macrobid] Med 09/28/18 23:48 Once 100 mg PO ONETIME ONE Labs: Laboratory Tests 09/28/18 Range/Units 23:25 Urine Color Yellow (YELLOW) Urine Appearance Slightly cloudy (CLEAR) Urine pH 6.5 (5.0-9.0) Ur Specific [place] <= 1.005 (1.005-1.030) Urine Protein Negative (NEGATIVE) Urine Glucose (UA) Negative (NEGATIVE) Urine Ketones Negative (NEGATIVE) Urine Occult Blood Moderate H (NEGATIVE) Urine Nitrite Negative (NEGATIVE) Urine Bilirubin Negative (NEGATIVE) Urine Urobilinogen 0.2 (0.2-1.0) mg/dL Ur Leukocyte Esterase Moderate H (NEGATIVE) Departure - Departure Time of Disposition: 23:51 Disposition: Home, Self-Care 01 Condition: Good Clinical Impression: UTI, Urinary tract infectious disease - Discharge Information Instructions: Urinary Tract Infection, Adult, [id number] Additional Instructions: 1) drink lots of liquids 2) follow up at clinic rx given; macrobid 100mg bid x 20 - My Orders Last 24 Hours: My Active Orders 09/28/18 23:25 CULTURE URINE [RM] Routine UA W/MICROSCOPIC [URIN] Routine 09/28/18 23:48 Nitrofurantoin [place]/Macrocryst [Macrobid] 100 mg PO ONETIME ONE - Assessment/Plan Last 24 Hours: My Active Orders 09/28/18 23:25 CULTURE URINE [RM] Routine UA W/MICROSCOPIC [URIN] Routine 09/28/18 23:48 Nitrofurantoin [place]/Macrocryst [Macrobid] 100 mg PO ONETIME ONE
== END 2018-09-28 23:59 | disposition home or self-care (01) ==
LOC: DL.ED 23:16
DX: N39.0 Urinary tract infection, site not specified (principal); J44.9 Chronic obstructive pulmonary disease, unspecified; Z88.5 Allergy status to narcotic agent; Z79.899 Other long term (current) drug therapy; Z79.01 Long term (current) use of anticoagulants
CPT/HCPCS: 81001; 87086; 87088; 87186; 99283; A9270